=== PATIENT | female | born 1990 | race Caucasian/White ===

== ENCOUNTER → 2020-08-26 | Outpatient (CLI) | payer BC, OTHER ==
[~2020-08-26] MED LIST: ABAC300; ACET325 PO; AMOX500; AMOX500 PO; CEPH500 PO; CODACE30 PO; CYCL10 PO; HYDGUAL120; IBUP800 PO; METR500 PO; Macrobid 100 M100 MG PO; OXYACE5T PO; OXYACE7.5T PO; Percocet 5-3251 EACH PO; RXCODACET PO; SULTRIDS PO; Verotin-Gr Cap1 EACH PO; Zofran Odt8 MG SL
== END ==
LOC: LAB 18:37
DX: L02.02 Furuncle of face (principal); L02.821 Furuncle of head [any part, except face]; L21.8 Other seborrheic dermatitis; L70.0 Acne vulgaris; L81.4 Other melanin hyperpigmentation
CPT/HCPCS: 87070; 87205

== ENCOUNTER 2021-02-08 19:50 | Inpatient (IN) | payer BC, OTHER ==
[~2021-02-08] VITALS: Ht 162.6 cm; Wt 84.5 kg
[2021-02-08 20:16] LABS: Source, Urine Clean Catch
[2021-02-08 20:21] LABS: Bilirubin, Urine Neg (Neg); Blood, Urine 1+ (Neg); Glucose Qualitative, Urine Neg (Neg); Ketones, Urine Neg (Neg); Leukocyte Esterase, Urine 3+ (Neg); Nitrite, Urine Neg (Neg); Protein, Urine 1+ (Neg); Urobilinogen, Urine NORM (Normal)
[2021-02-08 20:27] LABS: Appearance, Urine Clear (Clear); Color, Urine Pale Yellow (P-Yellow)
[2021-02-08 20:29] LABS: Bacteria Few /hpf; Red Blood Cells, Urine 0-2 /hpf (0-2); Squamous Epithelial Cells Few /hpf (Few); White Blood Cells, Urine TNTC /hpf (0-5)
[2021-02-08 22:22] LABS: BASOPHILS ABSOLUTE AUTO 0.04 K/mm3 (0.00-0.23); BASOPHILS PERCENT AUTO 0 % (0-2); EOSINOPHILS ABSOLUTE AUTO 0.12 K/mm3 (0.00-0.68); EOSINOPHILS PERCENT AUTO 1 % (0-6); Hematocrit 39.4 % (33.0-51.0); Hemoglobin 13.6 g/dL (11.5-16.0); IMMATURE GRAN ABSOLUTE AUTO 0.05 K/mm3 (0.00-0.10); IMMATURE GRAN PERCENT AUTO 0 % (0-1); LYMPHOCYTES ABSOLUTE AUTO 2.77 K/mm3 (0.84-5.20); LYMPHOCYTES PERCENT AUTO 21 % (21-46); MONOCYTES ABSOLUTE AUTO 1.14 K/mm3 (0.16-1.47); MONOCYTES PERCENT AUTO 9 % (4-13); Mean Corpuscular HGB 32.2 pg (26.0-34.0); Mean Corpuscular HGB Conc 34.5 g/dL (31.5-36.5); Mean Corpuscular Volume 93 fL (80-100); Mean Platelet Volume 9.6 fL (9.1-12.4); NEUTROPHILS ABSOLUTE AUTO 9.02 K/mm3 (1.96-9.15); NEUTROPHILS PERCENT AUTO 69 % (41-73); Platelet Count 305 K/mm3 (150-400); RDW Coefficient Variation 12.7 % (11.7-14.2); RDW Standard Deviation 43.6 fL (35.1-46.3); Red Blood Cell Count 4.22 M/mm3 (3.80-5.20); White Blood Cell Count 13.14 K/mm3 (4.00-11.30)
[2021-02-08 23:35] LABS: SARS-Cov-2 (COVID-19) PCR, MMC NEGATIVE (NEGATIVE)
--- NOTE | 2021-02-13 09:26 | NUR ---
[facility] DID TELEPHONE CALL [phone] - PER PT DOING WELL DENIED ISSUES OR CONCERNS BABY ON CPAP NOW WAS UNDER LIGHTS X 24 HOURS OFF NOW. PER PT "ALL RN AND CNM TOOK WONDERFUL CARE OF ME AND MY BABY, THEY WERE ALL AMAZING" DENIED ANY ISSUE PUMPING AT [facility] WITHOUT PROBLEM - INSTRUCTED PT TO CALL AFTER BABY DISCHARGES IF ANY ISSUE AND NEEDS APPOINTMENT FOR LC.
== END 2021-02-09 04:00 | disposition home or self-care (01) | DRG 807 ==
LOC: OBS 19:50 → BC 19:53 → OBS 20:59 → BC 21:00
PROVIDERS: ADMIT Registered Nurse Community Health
PROC: 10E0XZZ Delivery of Products of Conception, External Approach (ICD-10-PCS; principal; 2021-02-08)
DX: O60.14X0 Preterm labor third trimester with preterm delivery third trimester, not applicable or unspecified (principal); Z37.0 Single live birth; Z3A.30 30 weeks gestation of pregnancy; Z20.822 Contact with and (suspected) exposure to COVID-19; Z87.891 Personal history of nicotine dependence; Z86.19 Personal history of other infectious and parasitic diseases; Z88.3 Allergy status to other anti-infective agents; Z88.2 Allergy status to sulfonamides
CPT/HCPCS: 36415; 59025; 81001; 85025; 87086; 88307; A9270; J0290; J1885; J2590; U0004

== ENCOUNTER 2021-09-17 06:12 | Day surgery (SDC) | payer OTHER ==
[~2021-09-17] VITALS: Ht 162.6 cm; Wt 86.1 kg
[2021-09-17] MEDS ORDERED: Phentermine HCl30 MG (06:44)
[2021-09-17] MEDS ORDERED: IBUP200 PO (06:45)
[2021-09-17] MEDS ORDERED: ALBU90OI INH (06:46)
--- NOTE | 2021-09-17 07:59 | NUR ---
09/17/21 0759 Emily Williamson BUPIVACAINE 0.5% 30 MLS MIXED W/ 0.15 ML EPI PER ORDER TO CONSTITITUE BUPIVACAINE 0.5% 1:200,000 FOR INJECTION AT OPSITE BY DR FLORENCE.
== END 2021-09-17 09:30 | disposition home or self-care (01) ==
LOC: ORSCSDS 06:12
PROVIDERS: Obstetrics & Gynecology
PROC: 0UT74ZZ Resection of Bilateral Fallopian Tubes, Percutaneous Endoscopic Approach (ICD-10-PCS; principal; 2021-09-17 07:30)
DX: Z30.2 Encounter for sterilization (principal); N80.3 Endometriosis of pelvic peritoneum; N73.6 Female pelvic peritoneal adhesions (postinfective); J45.909 Unspecified asthma, uncomplicated; F17.210 Nicotine dependence, cigarettes, uncomplicated; Z79.899 Other long term (current) drug therapy
CPT/HCPCS: 88302; A9270; J0171; J0690; J1100; J1885; J2250; J2405; J2704; J2710; J3010; J7120

== ENCOUNTER 2024-01-03 12:46 | Emergency (ER) | payer OTHER ==
[~2024-01-03] VITALS: Ht 162.6 cm; Wt 84.4 kg
[~2024-01-03 12:46] MED LIST changes: +ALBU90OI INH; +IBUP200 PO; +Phentermine HCl30 MG
[2024-01-03 12:51] VITALS: BP 134/88
[2024-01-03 13:27] LABS: BASOPHILS ABSOLUTE AUTO 0.04 K/mm3 (0.00-0.23); BASOPHILS PERCENT AUTO 1 % (0-2); EOSINOPHILS ABSOLUTE AUTO 0.05 K/mm3 (0.00-0.68); EOSINOPHILS PERCENT AUTO 1 % (0-6); Hematocrit 44.7 % (33.0-51.0); Hemoglobin 15.1 g/dL (11.5-16.0); IMMATURE GRAN ABSOLUTE AUTO 0.02 K/mm3 (0.00-0.10); IMMATURE GRAN PERCENT AUTO 0 % (0-1); LYMPHOCYTES ABSOLUTE AUTO 1.55 K/mm3 (0.84-5.20); LYMPHOCYTES PERCENT AUTO 28 % (21-46); MONOCYTES ABSOLUTE AUTO 0.53 K/mm3 (0.16-1.47); MONOCYTES PERCENT AUTO 10 % (4-13); Mean Corpuscular HGB 31.1 pg (26.0-34.0); Mean Corpuscular HGB Conc 33.8 g/dL (31.5-36.5); Mean Corpuscular Volume 92 fL (80-100); Mean Platelet Volume 9.3 fL (9.1-12.4); NEUTROPHILS ABSOLUTE AUTO 3.34 K/mm3 (1.96-9.15); NEUTROPHILS PERCENT AUTO 60 % (41-73); Platelet Count 237 K/mm3 (150-400); RDW Coefficient Variation 12.8 % (11.7-14.2); RDW Standard Deviation 43.1 fL (35.1-46.3); Red Blood Cell Count 4.85 M/mm3 (3.80-5.20); White Blood Cell Count 5.53 K/mm3 (4.00-11.30)
[2024-01-03 14:10] LABS: Albumin, Blood 3.8 g/dL (3.4-5.0); Bilirubin, Total 0.3 mg/dL (0.1-1.0); Bun/Creatinine Ratio 14.1 (12.0-20.0); Calcium, Blood 8.7 mg/dL (8.5-10.1); Creatinine, Blood 0.64 mg/dL (0.40-1.00); Globulin, Blood 3.8 g/dL (2.2-4.0); Potassium, Blood 3.5 mmol/L (3.5-5.5); Total Protein, Blood 7.6 g/dL (6.4-8.2)
[2024-01-03 15:04] LABS: Source, Urine Clean Catch
[2024-01-03 15:13] LABS: Appearance, Urine Cloudy (Clear); Bilirubin, Urine Neg (Neg); Blood, Urine 1+ (Neg); Color, Urine Yellow (P-Yellow); Glucose Qualitative, Urine Neg (Neg); Ketones, Urine Neg (Neg); Leukocyte Esterase, Urine 3+ (Neg); Nitrite, Urine Neg (Neg); Protein, Urine 2+ (Neg); Specific Gravity, Urine 1.025 (1.003-1.022); Urobilinogen, Urine NORM (Normal)
[2024-01-03 15:36] LABS: White Blood Cells, Urine TNTC /hpf (0-5)
[2024-01-03 15:38] LABS: Bacteria Many /hpf; Calcium Oxalate Crystals Mod /hpf; Red Blood Cells, Urine 0-2 /hpf (0-2); Squamous Epithelial Cells Mod /hpf (Few)
== END 2024-01-03 16:40 | disposition home or self-care (01) ==
LOC: ER 12:46
PROVIDERS: Emergency Medicine
DX: R19.7 Diarrhea, unspecified (principal); R10.84 Generalized abdominal pain; R11.2 Nausea with vomiting, unspecified; Z88.2 Allergy status to sulfonamides; Z88.1 Allergy status to other antibiotic agents; Z79.899 Other long term (current) drug therapy; Z87.891 Personal history of nicotine dependence
CPT/HCPCS: 80053; 81001; 81025; 83690; 85025; 87086; 99284